=== PATIENT | male | born 1930 | race Caucasian/White ===

== ENCOUNTER 2019-03-21 12:05 | Inpatient (IN) | payer OTHER ==
[~2019-03-21] VITALS: Ht 177.8 cm; Wt 79.4 kg
[2019-03-21] MEDS ORDERED: ASPirin 81 mg TAB PO ONE (12:45)
[2019-03-21 14:38] LABS: Calcium 8.7 mg/dL (8.5-10.1)
[2019-03-21 14:39] LABS: Basophils # (auto) 0 uL; Eosinophils # (auto) 0.1 uL; Eosinophils % (auto) 2.1 % (0.0-7.0); Hematocrit 47.5 % (41.0-53.0); Hemoglobin 15.9 g/dL (13.5-17.5); Lymphocytes # (auto) 0.5 uL; Lymphocytes % (auto) 16.1 % (10.0-50.0); Mean Corpuscular Hemoglobin 31.9 pg (28.0-32.0); Mean Corpuscular Hgb Conc. 33.5 g/dL (32.0-36.0); Mean Corpuscular Volume 95.4 fL (80.0-100.0); Monocytes # (auto) 0.5 uL; Monocytes % (auto) 14.7 % (0.0-12.0); Neutrophils # (auto) 2.1 uL; Neutrophils % (auto) 66.1 % (37.0-80.0); Nucleated Red Blood Cells % 0.1 %; Platelet Count (auto) 169 10^3/uL (140-450); Red Blood Cells 4.98 10^6/uL (4.5-5.90); Red Cell Distribution Width 13.7 % (11.8-14.3); White Blood Cell 3.2 10^3/uL (4.4-10.8)
[2019-03-21 14:42] LABS: Albumin 3.4 g/dL (3.4-5.0)
[2019-03-21 14:50] LABS: INR 1.14 (0.9-1.15); Partial Thromboplastin Time 25.4 sec (23.78-33.04); Prothrombin Time 12.1 sec (9.27-12.13)
[2019-03-21 14:58] LABS: Bilirubin, Total 0.4 mg/dL (0.2-1.0); Total Protein 6.9 g/dL (6.4-8.2)
[2019-03-21 15:04] LABS: BUN/Creatinine Ratio 19.3
[2019-03-21] MEDS ORDERED: NITROGLYCERIN 0.4 MG SL TAB SL PRN (16:45)
[2019-03-21] MEDS ORDERED: ONDANSETRON HCL 4 MG/2 ML VIAL IV PRN (16:45)
[2019-03-21] MEDS ORDERED: ACETAMINOPHEN 325 MG TAB PO PRN (16:45)
[2019-03-21] MEDS ORDERED: MORPHINE SULF INJ 2 MG/ML SYRINGE 1ML IV PRN (16:45)
[2019-03-21 19:56] LABS: Urine Bacteria NONE SEEN /hpf (None Seen); Urine Blood Negative /uL (Negative); Urine Specific Gravity 1.008 (1.001-1.035); Urine WBC <1 /hpf (0 - 3)
[2019-03-21] MEDS ORDERED: cloNIDine HCL 0.1 MG TAB PO ONE (20:00)
--- NOTE | 2019-03-21 21:00 | NUR ---
TTelemetry admit from ER. Patient oriented to Tabatha Rivera, primary RN, unit, room, bed, and unit policies regarding patient care and visiting hours. Patient now on continuous telemetry monitoring, tele box # [phone] and telemetry reading on arrival to unit is sinus rhythm 64. Patient placed on bedside oxygen, weighed by bedscale and encouraged to call if they need something. All questions and concerns addressed, patient verbalized understanding. Note:
[2019-03-21 21:55] VITALS: BP 159/75
[2019-03-22] MEDS ORDERED: hydrALAZINE HCL 20 MG/ML VL IV PRN
[2019-03-22] MEDS ORDERED: traZODone HCL 50 MG TAB PO ONE (01:00)
[2019-03-22 05:00] VITALS: BP 141/72
[2019-03-22] MEDS: HYDROcodone-ACET 10/325MG TAB PO PRN ×2 (05:37→16:41)
[2019-03-22 06:24] LABS: Basophils # (auto) 0 uL; Basophils % (auto) 0.7 % (0.0-2.0); Eosinophils # (auto) 0.1 uL; Eosinophils % (auto) 2.6 % (0.0-7.0); Hematocrit 44.8 % (41.0-53.0); Hemoglobin 15.2 g/dL (13.5-17.5); Lymphocytes # (auto) 0.6 uL; Lymphocytes % (auto) 18.1 % (10.0-50.0); Mean Corpuscular Hemoglobin 32.1 pg (28.0-32.0); Mean Corpuscular Hgb Conc. 33.9 g/dL (32.0-36.0); Mean Corpuscular Volume 94.6 fL (80.0-100.0); Monocytes # (auto) 0.5 uL; Monocytes % (auto) 13.4 % (0.0-12.0); Neutrophils # (auto) 2.3 uL; Neutrophils % (auto) 65.2 % (37.0-80.0); Nucleated Red Blood Cells % 0.1 %; Platelet Count (auto) 157 10^3/uL (140-450); Red Blood Cells 4.74 10^6/uL (4.5-5.90); Red Cell Distribution Width 13.7 % (11.8-14.3); White Blood Cell 3.5 10^3/uL (4.4-10.8)
[2019-03-22 06:34] LABS: Alanine Aminotransferase 22 U/L (16-61); Albumin 3.4 g/dL (3.4-5.0); Anion Gap 5 (5-15); Blood Urea Nitrogen 14 mg/dL (7-18); Calcium 8.5 mg/dL (8.5-10.1); Carbon Dioxide 25 mmol/L (21-32); Chloride 110 mmol/L (98-107); Glucose 100 mg/dL (74-106); Magnesium 2.6 mg/dL (1.6-2.6); Sodium 140 mmol/L (136-145)
[2019-03-22 06:39] LABS: Alkaline Phosphatase 65 U/L (45-117); Aspartate Aminotransferase 16 U/L (15-37); BUN/Creatinine Ratio 20.3; Bilirubin, Total 0.6 mg/dL (0.2-1.0); GFR African American 139 mL/min; GFR Non-African American 115 mL/min; Total Protein 6.5 g/dL (6.4-8.2)
[2019-03-22 08:40] VITALS: BP 135/51
[2019-03-22 12:31] VITALS: BP 169/96
--- NOTE | 2019-03-22 14:16 | NUR ---
DR CHRISTENSEN AT BEDSIDE FOR CARDIOLOGY CONSULT.
[2019-03-22 17:06] VITALS: BP 163/85
[2019-03-25] MEDS ORDERED: AML5T PO (19:42)
== END 2019-03-22 17:18 | disposition home or self-care (01) | DRG 310 ==
LOC: EDSEX 12:14 → ER 12:14 → TELE 16:46 → TELE-WESTW 21:00
PROVIDERS: ADMIT Internal Medicine; ATTEND Internal Medicine
DX: I49.5 Sick sinus syndrome (principal); I10 Essential (primary) hypertension; R91.1 Solitary pulmonary nodule; Z82.49 Family history of ischemic heart disease and other diseases of the circulatory system; Z88.8 Allergy status to other drugs, medicaments and biological substances
CPT/HCPCS: 36415; 71046; 80053; 81001; 83735; 83880; 84443; 84484; 85025; 85610; 85730; 93005; 93306; G0378